=== PATIENT | male | born 1980 | race Caucasian/White ===

== ENCOUNTER 2017-02-03 23:20 | Emergency (ER) | payer OTHER ==
[~2017-02-03] VITALS: Ht 170.2 cm; Wt 102.1 kg
[~2017-02-03 23:20] MED LIST: AUGMENTIN 875 M1 TAB PO; PREDNISONE10 MG PO; PROAIR HFA0.09 MG/Ac INH; ROBITUSSIN W/CO10 ML PO; VICODIN5-300 PO
[2017-02-03 23:25] VITALS: BP 146/87
--- NOTE | 2017-02-03 23:50 | ED THROAT/DENTAL COMPLAINT ---
History of Present Illness General Chief Complaint: Sore Throat, Dental Pain Stated Complaint: COUGH, SORE THROAT Source: patient Exam Limitations: no limitations Vital Signs & Intake/Output Vital Signs & Intake/Output Vital Signs Date Time Temp Pulse Resp B/P Pulse O2 O2 Flow FiO2 Ox Delivery Rate 02/03 2325 98.3 86 20 146/87 96 Room Air ED Intake and Output 02/04 0000 02/03 1200 Intake Total Output Total Balance Patient 225 lb Weight Allergies Coded Allergies: peanut (Severe, ANGIODEMA 02/04/17) Uncoded Allergies: LOBSTER (Intermediate, FACIAL EDEMA 08/16/13) Reconcile Medications Albuterol Sulfate (Proair Hfa) 90 MCG HFA.AER.AD 2 PUF INH Q4-6 PRN PRN DYSPNEA Albuterol Sulfate (Proair Hfa) 0.09 MG/Actuation DWIGHT 2 PUFF INH Q4HR PRN WHEEZING Azithromycin (Zithromax) 250 MG TABLET 1 DP PO AD BRONCHITIS 2 the first day followed by 1 for days 2-5 Methylprednisolone. (Medrol) 4 MG TAB.DS.PK 1 DP PO AD INFLAMMATION 6 on day 1 then reduce by one tablet daily until gone Triage Note: SORETHROAT COUGH CONGESTION 2-3 DAYS Triage Nurses Notes Reviewed? yes Onset: Abrupt Duration: day(s): (3) Timing: recent history Injury Environment: home Severity: moderate No Modifying Factors: none Associated Symptoms: cough, FEVER, CHILLS HPI: 36-year-old male presents with sore throat, cough, productive sputum and yellow and green, subjective chills for the past 2-3 days. No relief with NyQuil or Cepacol. In fact he states the Cepacol made his throat worse. Go for an sick but not in the past 2 weeks. He is a 2 pack per day smoker and states he has been wheezing. Past History Travel History Traveled to [place] past 21 day No Medical History Any Pertinent Medical History? see below for history Respiratory: bronchitis Surgical History Surgical History: non-contributory Psychosocial History What is your primary language Cambodian Family History Hx Contributory? No Review of Systems Review of Systems Constitutional: Reports: chills. Denies: fever. EENTM: Reports: throat pain. Respiratory: Reports: cough, short of breath, stridor. Cardiovascular: Denies: chest pain, palpitations. GI: Denies: abdominal pain. Genitourinary: Reports: no symptoms. Musculoskeletal: Reports: no symptoms. Skin: Reports: no symptoms. Neurological/Psychological: Reports: no symptoms. Hematologic/Endocrine: Denies: bruising, bleeding, polyuria, polydipsia. Immunologic/Allergic: Denies: splenectomy. All Other Systems: Reviewed and Negative Physical Exam Physical Exam General Appearance: well developed/nourished, alert, awake Head: atraumatic, normal appearance Eyes: Bilateral: normal appearance, PERRL, EOMI. Ears: Bilateral: canal normal, Tympanic normal. Nose: normal inspection Mouth/Throat: pharynx swelling Neck: normal inspection, supple, full range of motion Cardiovascular/Respiratory: normal peripheral pulses, regular rate/rhythm, wheezing, diminished breath sounds Gastrointestinal: SOFT NONTENDER Neurologic/Psych: no motor/sensory deficits, awake, alert, oriented x 3, normal gait Skin: intact, normal color, cyanosis Core Measures ACS in differential dx? No Severe Sepsis Present: No Septic Shock Present: No Progress Differential Diagnosis: PNEUMONIA, BRONCHITIS, PHARYNGITIS Plan of Care: Current Medications Sig/Mariana Start time Last Medication Dose Stop Time Status Admin Dexamethasone 8 MG ONCE ONE 02/03 2345 UNVr (Decadron) 02/03 2346 Ketorolac 60 MG ONCE ONE 02/03 2345 UNVr Tromethamine 02/03 2346 (Toradol) Departure Departure Time of Disposition: 2358 Disposition: HOME OR SELF CARE Condition: Stable Clinical Impression Primary Impression: Bronchitis Secondary Impressions: Pharyngitis, Tobacco abuse, Tobacco abuse counseling Referrals: PATIENT HAS NO PRIMARY CARE DR (PCP/Family) Additional Instructions: Take the azithromycin, medrol dose pack and use the inhaler as directed. Work with your doctor to stop smoking. Departure Forms: Customer Survey General Discharge Information Prescriptions: Current Visit Scripts Albuterol Sulfate (Proair Hfa) 2 PUF INH Q4-6 PRN PRN DYSPNEA #1 INHAL Methylprednisolone. (Medrol) 1 DP PO AD #1 DP 6 on day 1 then reduce by one tablet daily until gone Azithromycin (Zithromax) 1 DP PO AD #6 TAB 2 the first day followed by 1 for days 2-5
[2017-02-04] MEDS ORDERED: PROAIR HFA8.5 GM INH (00:03)
[2017-02-04] MEDS ORDERED: MEDROL4 M2 PO (00:03)
[2017-02-04] MEDS ORDERED: ZITHROMAX250 M2 PO (00:03)
== END 2017-02-04 00:26 ==
LOC: ERH 23:20
DX: J40 Bronchitis, not specified as acute or chronic (principal); F17.210 Nicotine dependence, cigarettes, uncomplicated
CPT/HCPCS: 96372; J1100; J1885